=== PATIENT | male | born 2000 | race Caucasian/White ===

== ENCOUNTER 2021-03-17 12:57 | Emergency (ER) | payer BC ==
[~2021-03-17] VITALS: Ht 172.7 cm; Wt 73.0 kg
--- NOTE | 2021-03-17 13:20 | NUR ---
assumed care of pt. pt here for evaluation s/p seizure RN ALLERGY pt reports that he has a hx of seizures and that he is meicated for them. reports that he hasn't had a seizure in about 1 year and that he is complaint with his medications. pt reports that he was in the shower when he had the seizure and that he thinks that he fell but he is not sure no obvious injury. no oral trauma. pt c/o mild CULLEN. A&O x4. ambulatory and MCCARTNEY without difficulty
--- NOTE | 2021-03-17 13:42 | NUR ---
Dr. Romero has been to bedside for eval seizyre precautions in place for safety
[2021-03-17 13:57] LABS: BASOPHILS % (AUTO) 1 % (0-1); EOSINOPHILS % (AUTO) 1 % (1-7); LYMPHOCYTES % (AUTO) 19 % (22-44); MEAN CORPUSCULAR HEMOGLOBIN 30.1 pg (27.5-34.5); MEAN CORPUSCULAR HGB CONC 33.5 g/dL (33.2-36.2); MEAN PLATELET VOLUME 8.2 fL (7.4-10.4); MONOCYTES % (AUTO) 10 % (2-9); NEUTROPHILS % (AUTO) 70 % (42-75); PLATELET COUNT 260 x10^3/uL (130-400); RED BLOOD COUNT 4.76 x10^6/uL (4.38-5.82); RED CELL DISTRIBUTION WIDTH 13.1 % (9.4-14.8)
--- NOTE | 2021-03-17 14:00 | NUR ---
lab has been to bedside to draw pt sleeping
[2021-03-17 14:04] LABS: MD NO
[2021-03-17 14:06] LABS: ALANINE AMINOTRANSFERASE 24 U/L (12-78); ALBUMIN 4.5 g/dL (3.4-5.0); ANION GAP 6 mmol/L (5-15); CALCIUM 9.2 mg/dL (8.5-10.1); CHLORIDE 109 mmol/L (98-107); CREATININE 1.16 mg/dL (0.7-1.3)
[2021-03-17 14:08] LABS: ALKALINE PHOSPHATASE 51 U/L (45-117); BILIRUBIN,TOTAL 0.9 mg/dL (0.2-1.0); TOTAL PROTEIN 7.2 g/dL (6.4-8.2)
--- NOTE | 2021-03-17 14:12 | NUR ---
pt sleeping chart up for MD mantilla
[2021-03-17 15:00] VITALS: BP 105/58
== END 2021-03-17 15:06 | disposition home or self-care (01) ==
LOC: ED 15:03
DX: G40.909 Epilepsy, unspecified, not intractable, without status epilepticus (principal)
CPT/HCPCS: 36415; 80053; 83605; 85025; 93005; 99284